=== PATIENT | male | born 1970 | race American Indian/Alaskan Native ===

== ENCOUNTER 2016-09-26 12:08 | Emergency (ER) | payer BC ==
[2016-09-26 12:28] VITALS: TEMP 98.1; O2SAT 99
[2016-09-26] MEDS ORDERED: Morphine 4 mg/ml ISec IVP STA (12:41)
--- NOTE | 2016-09-26 12:52 | ED PDOC ---
Arrival/HPI - General Chief Complaint: Male Genitourinary Time Seen by Provider: 09/26/16 12:34 Historian: Patient - History of Present Illness Narrative History of Present Illness (Text): 09/26/16 12:48 Soraida Barker is a 46 year old male, with a history of hypertension and varicocele, presents to the emergency department complaining of left testicular swelling and pain since yesterday. States that he felt soreness for past 4 days , but noted swelling and pain yesterday which worsened today. States he took 3 Aleve today since 7 A.M today for pain and swelling for minimal relief, last dose 15 minutes prior to arrival. States symptoms are similar to previous episode of varicocele 10 years prior. Denies any penile swelling or discharge. Denies fever, chills, headache, dizziness, nausea, vomiting, diarrhea, urinary symptoms, or any other complaints at this time. Time/Duration: Other (yesterday ) Symptom Onset: Gradual Symptom Course: Worsening Severity Level: Moderate Activities at Onset: Light Past Medical History - Provider Review Nursing Documentation Reviewed: Yes - Infectious Disease Hx of Infectious Diseases: None - Cardiac Hx Hypertension: Yes - Genitourinary/Gynecological Hx Prostate Problems: Yes - Psychiatric Hx Substance Use: No - Anesthesia Hx Anesthesia: No Hx Anesthesia Reactions: No Hx Malignant Hyperthermia: No Family/Social History - Physician Review Nursing Documentation Reviewed: Yes Family/Social History: No Known Family HX Smoking Status: Never Smoked Hx Alcohol Use: Yes Frequency of alcohol use: Few days per week Hx Substance Use: No Allergies/Home Meds Allergies/Adverse Reactions: Allergies ciprofloxacin [From Cipro] Adverse Reaction (Verified 09/26/16 12:28) PAIN Review of Systems - Physician Review All systems were reviewed & negative as marked: Yes - Review of Systems Constitutional: Normal. absent: Fatigue, Fevers Respiratory: Normal. absent: SOB, Cough, Sputum Cardiovascular: Normal. absent: Chest Pain, Palpitations Gastrointestinal: Normal. absent: Abdominal Pain, Nausea, Vomiting, Hematemesis Genitourinary Male: Other (left testicular swelling) Musculoskeletal: Normal Neurological: Normal. absent: Headache, Dizziness Psychiatric: Normal Physical Exam Vital Signs Reviewed: Yes Vital Signs Temp Pulse Resp BP Pulse Ox 09/26/16 12:23 98.1 F 101 H 20 168/100 H 99 Temperature: Afebrile Blood Pressure: Hypertensive Pulse: Tachycardic Respiratory Rate: Normal Appearance: Positive for: Well-Appearing, Non-Toxic, Comfortable Pain Distress: None Mental Status: Positive for: Alert and Oriented X 3 - Systems Exam Head: Present: Atraumatic, Normocephalic Pupils: Present: PERRL Conjunctiva: Present: Normal Respiratory/Chest: Present: Clear to Auscultation, Good Air Exchange. No: Respiratory Distress, Accessory Muscle Use Cardiovascular: Present: Regular Rate and Rhythm, Normal S1, S2. No: Murmurs Abdomen: Present: Normal Bowel Sounds. No: Tenderness, Distention, Peritoneal Signs Genitourinary Male: Present: Testicle Tenderness, Testicle Swelling (left testicular swelling with tenderness ). No: Penile Discharge, Penile Swelling, Erythema, Hernias Upper Extremity: Present: Normal Inspection. No: Cyanosis, Edema Lower Extremity: Present: Normal Inspection. No: Edema Neurological: Present: GCS=15, CN II-XII Intact, Speech Normal Skin: Present: Warm, Dry, Normal Color. No: Rashes Psychiatric: Present: Alert, Oriented x 3, Normal Insight, Normal Concentration Medical Decision Making ED Course and Treatment: 09/26/16 13:00 Impression: A 46 year old male who presents to the emergency department complaining of left testicular swelling since yesterday. Took 3 Aleve for minimal relief DDx: Torsion vs Epidydmitis vs Varicocele/Hydrocele Plan: -- Labs -- Morphine -- Ultrasound -- Urinalysis -- Reassess and disposition Progress Notes: US Testes Duplex Furnace And Wash Equipment Operator : Salvatore Hopper MD IMPRESSION: Both testicles exhibit arterial flow however there is increased flow to the left testicle and left epididymis suggesting mild epididiymo-orchitis. . Small bilateral varicoceles and left-sided hydrocele. Case discussed with Dr. Colby at 3:28 p.m. 09/26/16 15:[address] Barroso, states to give scrotal support, Ceftin 500 mg BID , Naproxen BID, follow up with him tomorrow. 09/26/16 15:54 Discuss plan with patient and . They have their own urologist in [place] that they would like to follow up with. - Lab Interpretations Lab Results: 09/26/16 13:05 09/26/16 13:05 Lab Results 09/26/16 13:05: Sodium 136, Potassium 3.8, Chloride 101, Carbon Dioxide 24, Anion Gap 15, BUN 7, Creatinine 0.7, Est GFR ( Amer) > 60, Est GFR (Non- Af Amer) > 60, Random Glucose 162 H, Calcium 9.8 09/26/16 13:05: WBC 14.9 H, RBC 4.76, Hgb 14.2, Hct 40.3 L, MCV 84.7, MCH 29.8, MCHC 35.2, RDW 13.6, Plt Count 267, MPV 8.6, Gran % 84.6 H, Lymph % (Auto) 7.0 L , [place] % (Auto) 8.2 H, Eos % (Auto) 0.1 L, Baso % (Auto) 0.1, Gran # 12.64 H, Lymph # 1.0 L, [place] # 1.2 H, Eos # 0.0, Baso # 0.02 09/26/16 11:30: Urine Color Light yellow, Urine Appearance Clear, Urine pH 6.5, Ur Specific [place] <= 1.005, Urine Protein Negative, Urine Glucose (UA) Negative, Urine Ketones Negative, Urine Blood Trace-lysed H, Urine Nitrate Negative, Urine Bilirubin Negative, Urine Urobilinogen 0.2, Ur Leukocyte Esterase Moderate H, Urine RBC 0 - 2, Urine WBC 1 - 3, Ur Epithelial Cells 0 - 2 , Urine Bacteria Few I have reviewed the lab results: Yes - RAD Interpretation Radiology Orders: 09/26/16 12:42 TESTES DUPLEX COMPLETE [US] Stat Home Theatre Technician: Radiologist - Medication Orders Current Medication Orders: Discontinued Medications Morphine Sulfate (Morphine) 4 mg IVP STAT STA Stop: 09/26/16 12:42 Last Admin: 09/26/16 13:06 Dose: 4 mg - Scribe Statement The provider has reviewed the documentation as recorded by the Selvin Centeno Provider Attestation: All medical record entries made by the Selvin were at my direction and personally dictated by me. I have reviewed the chart and agree that the record accurately reflects my personal performance of the history, physical exam, medical decision making, and the department course for this patient. I have also personally directed, reviewed, and agree with the discharge instructions and disposition. Disposition/Present on Arrival - Present on Arrival Any Indicators Present on Arrival: No History of DVT/PE: No History of Uncontrolled Diabetes: No Urinary Catheter: No History of Decub. Ulcer: No History Surgical Site Infection Following: None - Disposition Have Diagnosis and Disposition been Completed?: Yes Diagnosis: Epididymitis, Varicocele, Hydrocele Disposition: HOME/ ROUTINE Disposition Time: 15:54 Patient Plan: Discharge Patient Problems: Current Active Problems Problem Status Onset Epididymitis Acute Varicocele Acute Hydrocele Acute Condition: IMPROVED Discharge Instructions (ExitCare): Epididymitis (ED), Hydrocele (ED), Varicocele (ED) Additional Instructions: Mr Barker, thank you for letting us take care of you today. Your provider was Dr. Colby. You were treated for Epidydmitis, Hydrocele, Varicocele. The emergency medical care you received today was directed at your acute symptoms. If you were prescribed any medication, please fill it and take as directed. It may take several days for your symptoms to resolve. Return to the Emergency Department if your symptoms worsen, do not improve, or if you have any other problems. Please contact your doctor or call one of the physicians/clinics you have been referred to that are listed on the Patient Visit Information form that is included in your discharge packet. Bring any paperwork you were given at discharge with you along with any medications you are taking to your follow up visit. Our treatment cannot replace ongoing medical care by a primary care provider (PCP) outside of the emergency department. Thank you for allowing the [facility] team to be part of your care today. If you had an X-Ray or CT scan: A Radiologist will review the ED reading if any change in treatment is needed we will contact you. If you had a blood, urine, or wound culture: It will take several days for the results, if any change in treatment is needed we will contact you. If you had an STI test: It will take 48 hours for the results. Please call after 1 week if you have not heard back. Prescriptions: Cefuroxime Axetil [Cefuroxime] 500 mg PO BID #20 tablet Naproxen 500 mg PO BID PRN #30 tab PRN Reason: Pain, Moderate (4-7) Referrals: Juan Carlos Barroso MD [Staff Provider] - Follow up with primary Forms: Air Visits Discharge (Peruvian), WORK NOTE
[2016-09-26 13:07] LABS: ADD MANUAL DIFF? NO
[2016-09-26 13:11] LABS: BASO # 0.02 K/mm3 (0.0-2.0); BASO % 0.1 % (0.0-3.0); EOS % 0.1 % (1.5-5.0); GRAN # 12.64 (1.4-6.5); GRAN % 84.6 % (50.0-68.0); HEMATOCRIT 40.3 % (42.0-52.0); MEAN CELL VOLUME 84.7 fL (80.0-105.0); MEAN CORPUSCULAR HEMOGLOBIN 29.8 pg (25.0-35.0); MEAN CORPUSCULAR HGB CONC 35.2 g/dl (31.0-37.0); MEAN PLATELET VOLUME 8.6 fl (7.0-11.0); MONO # 1.2 (0.1-0.6); MONO % 8.2 % (1.0-6.0); PLATELET COUNT 267 10^3/uL (120.0-450.0); RED CELL DISTRIBUTION WIDTH 13.6 % (11.5-14.5); WHITE BLOOD COUNT 14.9 10^3/ul (4.5-11.0)
[2016-09-26 13:18] LABS: BLOOD UREA NITROGEN 7 mg/dL (7-21); CALCIUM 9.8 mg/dL (8.4-10.5); CARBON DIOXIDE 24 mmol/L (21-33); CHLORIDE 101 mmol/L (98-107); GFR AFRICAN-AMERICAN > 60; GLUCOSE,RANDOM 162 mg/dL (70-110); POTASSIUM 3.8 mmol/L (3.6-5.0); SODIUM 136 mmol/L (132-148)
[2016-09-26 14:52] LABS: PH,URINE 6.5 (4.7-8.0); URINE BILIRUBIN NEGATIVE (NEGATIVE); URINE BLOOD TRACE-LYSED (NEGATIVE); URINE GLUCOSE (UA) NEGATIVE (NEGATIVE); URINE KETONE NEGATIVE (NEGATIVE); URINE LEUKOCYTE ESTERASE MODERATE Leu/uL (NEGATIVE); URINE PROTEIN NEGATIVE mg/dL (<30 mg/dL); URINE UROBILINOGEN 0.2 E.U./dL (<1 E.U./dL)
[2016-09-26 14:54] LABS: URINE APPEARANCE CLEAR (CLEAR); URINE COLOR LIGHT YELLOW (YELLOW)
[2016-09-26 15:01] LABS: URINE BACTERIA FEW (NEG); URINE EPITHELIAL CELLS 0 - 2 /hpf (0-5); URINE RBC 0 - 2 /hpf (0-2)
--- NOTE | 2016-09-26 15:32 | US ---
HISTORY: left testicular swelling pain r/o torsion no evidence TECHNIQUE: Realtime sonography through the scrotum with color and doppler flow. COMPARISON: None Available. FINDINGS: RIGHT TESTICLE: Measures 4.3 x 2 .1 x 2.6 cm cm. Normal echotexture and flow. Small varicocele. RIGHT EPIDIDYMIS: Epididymal head measures 1.1 x 1.1 x 0.87 cm. Grossly unremarkable appearance with normal flow. LEFT TESTICLE: Measures 4.6 x 2.7 x 2.9 cm. Normal echotexture. There is increased mild epididymoorchitis. . Small to medium size left-sided hydrocele L with debris. Small varicocele. LEFT EPIDIDYMIS: Epididymal head measures 2.4 x 1.2 x 1.4 cm cm. Slight increased flow to the epididymal head and tail. Findings probably represent mild epididymoorchitis HYDROCELE: As above. VARICOCELE: As above OTHER FINDINGS: None. IMPRESSION: Both testicles exhibit arterial flow however there is increased flow to the left testicle and left epididymis suggesting mild epididiymo-orchitis. . Small bilateral varicoceles and left-sided hydrocele. Case discussed with Dr. Colby at 3:28 p.m.
[2016-09-26 17:47] VITALS: BP 154/87; PULSE 97; RESP 16
== END 2016-09-26 16:25 | disposition home or self-care (01) ==
LOC: ED 12:08
DX: I86.1 Scrotal varices (principal); N45.1 Epididymitis; N43.3 Hydrocele, unspecified
CPT/HCPCS: 80048; 81001; 85025; 87086; 93975; 96374; 99284; J2270